=== PATIENT | male | born 1945 | race Caucasian/White ===

== ENCOUNTER 2019-08-18 10:23 | Emergency (ER) | payer MEDICARE, BC ==
[~2019-08-18] VITALS: Ht 175.3 cm; Wt 125.9 kg
[2019-08-18 10:23] VITALS: TEMP 97.9
[~2019-08-18 10:23] MED LIST: BETAPACEAF120 PO; CARDIZEM CD 30300 MG PO; COZAAR100 MG PO; ELIQUIS 2.5 PO; ELIQUIS 5MG PO; FOLIC ACID 40400 MCG PO; HYTRIN 5MG C5 MG/CAP PO; K-DUR20 MEQ PO; LASIX 40MG TABL40 MG PO; MASON NATURAL O1 SGL PO; MULTIPLE VITAMI1 CAP PO; PHARMASSURE GA500 MG PO; PRILOSEC 20MG20 MG PO; TRICOR145 MG PO; ZYLOPRIM 300MG300 MG PO
[2019-08-18] MEDS ORDERED: PACERONE200 MG PO (10:29)
[2019-08-18] MEDS ORDERED: NORVASC 10MG10 MG PO (10:31)
[2019-08-18] MEDS ORDERED: FLEXERIL 1010 MG/TAB PO (11:23)
[2019-08-18 12:23] LABS: COLLECTION METHOD CLEAN CATCH
[2019-08-18 12:29] LABS: BASO % 0.5 % (0.0-2.0); EOS # 0.1 (0.0-0.7); EOS % 1.6 % (0-4.0); GRAN # 2.5 (1.4-6.5); GRAN % 66.4 % (42.2-75.2); HEMATOCRIT 37.8 % (42.0-52.0); HEMOGLOBIN 13.1 g/dl (13.5-18.0); LYMPH # 0.8 (1.2-3.4); LYMPH % 21.9 % (20.0-51.0); MEAN CELL VOLUME 98 fl (80.0-100.0); MEAN CORPUSCULAR HEMOGLOBIN 34 pg (27.0-31.0); MEAN CORPUSCULAR HGB CONC 35 g/dl (33.0-37.0); MEAN PLATELET VOLUME 10.2 fl (7.4-10.4); MONO # 0.4 (0.1-0.6); MONO % 9.1 % (1.7-9.3); PLATELET COUNT 156 K/mm3 (130-400); RED BLOOD COUNT 3.84 M/mm3 (4.20-5.60); REDCELL DISTRIBUTION WIDTH-CV 12.9 % (11.5-14.5)
[2019-08-18 12:32] LABS: PH 6 (5-8); SQUAMOUS EPITHELIAL None Seen /hpf; URINE APPEARANCE Clear; URINE BACTERIA None Seen /hpf; URINE BILIRUBIN Negative (NEGATIVE); URINE BLOOD Negative (NEGATIVE); URINE COLOR Yellow; URINE GLUCOSE Negative (NEGATIVE); URINE KETONE Negative (NEGATIVE); URINE LEUKOCYTE ESTERASE Negative (NEGATIVE); URINE NITRATE Negative (NEGATIVE); URINE PROTEIN(semi-quant) Negative (NEGATIVE); URINE RBC 0-2 /hpf; URINE UROBILINOGEN Negative (NEGATIVE)
[2019-08-18 12:55] LABS: CREATININE, serum 1.25 (0.66-1.25); POTASSIUM 4.2 mmol/L (3.4-5.0)
[2019-08-18 13:45] VITALS: BP 125/71; PULSE 71
== END 2019-08-18 13:51 | disposition home or self-care (01) ==
LOC: COL.ER 10:23
PROVIDERS: Emergency Medicine
DX: M54.5 Low back pain (principal); I48.91 Unspecified atrial fibrillation; I10 Essential (primary) hypertension; Z79.01 Long term (current) use of anticoagulants
CPT/HCPCS: J1100; J2270; J2405

== ENCOUNTER → 2019-10-09 | Outpatient (CLI) | payer MEDICARE, BC ==
[~2019-10-09] VITALS: Ht 175.3 cm; Wt 128.3 kg
[~2019-10-09] MED LIST changes: +CORDARONE200 MG/TAB PO; +FISH OIL 1000MG1 CAP PO; +FLEXERIL 1010 MG/TAB PO; +LOTREL 10 MG-201 CAP; +NEURONTIN300 MG/CAP PO; +NORVASC 10MG10 MG PO; +ONE-A-DAY ESSE1 EACH PO; +PACERONE200 MG PO
[2019-10-09 13:02] VITALS: BP 147/64; PULSE 77
[2019-10-09 14:20] VITALS: BP 166/80; PULSE 70
== END ==
LOC: COL.RAD 12:30
DX: M48.061 Spinal stenosis, lumbar region without neurogenic claudication (principal)
CPT/HCPCS: J3301

== ENCOUNTER → 2019-11-01 | Outpatient (CLI) | payer MEDICARE, BC ==
[~2019-11-01] VITALS: Ht 175.3 cm; Wt 126.0 kg
[2019-11-01 13:04] VITALS: BP 159/77; PULSE 83
[2019-11-01 14:30] VITALS: BP 157/81; PULSE 72
== END ==
LOC: COL.RAD 12:39
DX: M54.5 Low back pain (principal)
CPT/HCPCS: J3301

== ENCOUNTER → 2019-12-13 | Outpatient (CLI) | payer MEDICARE, BC ==
[~2019-12-13] VITALS: Ht 175.3 cm; Wt 130.5 kg
[2019-12-13 12:30] VITALS: BP 160/80; PULSE 82
[2019-12-13 13:20] VITALS: BP 174/81; PULSE 81
== END ==
LOC: COL.RAD 12:18
DX: M53.3 Sacrococcygeal disorders, not elsewhere classified (principal); M54.5 Low back pain
CPT/HCPCS: J3301

== ENCOUNTER → 2020-04-11 | Outpatient (CLI) | payer MEDICARE, BC | LOC: COL.RAD 15:08 | DX: M43.17 Spondylolisthesis, lumbosacral region (principal); M51.36 Other intervertebral disc degeneration, lumbar region; M47.816 Spondylosis without myelopathy or radiculopathy, lumbar region; Z98.1 Arthrodesis status ==

== ENCOUNTER 2021-03-05 02:32 | Emergency (ER) | payer MEDICARE, BC ==
[~2021-03-05] VITALS: Ht 175.3 cm; Wt 116.4 kg
[2021-03-05 03:07] LABS: BASO % 0.4 % (0.0-2.0); EOS # 0.2 K/mm3 (0.0-0.7); EOS % 3.1 % (0.0-4.0); GRAN # 2.7 K/mm3 (1.4-6.5); GRAN % 51.7 % (42.2-75.2); HEMOGLOBIN 10.8 g/dl (13.5-18.0); LYMPH # 1.6 K/mm3 (1.2-3.4); LYMPH % 31.6 % (20.0-51.0); MEAN CELL VOLUME 96 fl (80.0-100.0); MEAN CORPUSCULAR HEMOGLOBIN 33 pg (27-31); MEAN CORPUSCULAR HGB CONC 35 g/dl (33.0-37.0); MEAN PLATELET VOLUME 9.7 fl (7.4-10.4); MONO # 0.7 K/mm3 (0.1-0.6); MONO % 12.6 % (1.7-9.3); PLATELET COUNT 169 K/mm3 (130-400); RED BLOOD COUNT 3.25 M/mm3 (4.20-5.60); REDCELL DISTRIBUTION WIDTH-CV 14.6 % (11.5-14.5)
[2021-03-05 03:08] LABS: HEMATOCRIT 31.3 % (42.0-52.0)
[2021-03-05 03:27] LABS: ALBUMIN 3.9 gm/dL (3.4-4.8); BILIRUBIN,TOTAL 0.6 mg/dL (0.2-1.2); CALCIUM 8.6 mg/dL (8.4-10.2); CREATININE, serum 1.28 mg/dL (0.72-1.25); POTASSIUM 3.6 mmol/L (3.5-4.5); TOTAL PROTEIN 6.2 gm/dL (6.2-8.1)
[2021-03-05 09:18] VITALS: TEMP 97.1
[2021-03-05 10:40] VITALS: BP 142/78; PULSE 70
== END 2021-03-05 10:40 | disposition home or self-care (01) ==
LOC: COL.ER 02:32
PROVIDERS: Personal Emergency Response Attendant
DX: S09.90XA Unspecified injury of head, initial encounter (principal); S01.01XA Laceration without foreign body of scalp, initial encounter; F10.129 Alcohol abuse with intoxication, unspecified; I10 Essential (primary) hypertension; E78.00 Pure hypercholesterolemia, unspecified; I48.91 Unspecified atrial fibrillation; Y90.6 Blood alcohol level of 120-199 mg/100 ml; Z79.01 Long term (current) use of anticoagulants; Z79.899 Other long term (current) drug therapy; W06.XXXA Fall from bed, initial encounter
CPT/HCPCS: J7040

== ENCOUNTER → 2021-03-24 | Outpatient (CLI) | payer MEDICARE, BC | LOC: COL.RAD 07:58 | DX: R16.0 Hepatomegaly, not elsewhere classified (principal); K82.4 Cholesterolosis of gallbladder; F10.21 Alcohol dependence, in remission ==

== ENCOUNTER 2021-04-18 16:00 | Inpatient (IN) | payer MEDICARE, BC ==
[~2021-04-18] VITALS: Ht 175.3 cm; Wt 113.3 kg
[2021-04-18 16:30] VITALS: BP 123/61; PULSE 66; TEMP 97.6
[2021-04-18] MEDS ORDERED: DULCOLAX STOOL100 MG PO (17:05)
[2021-04-18] MEDS ORDERED: NORCO 325 MG-7.1 TAB PO (17:06)
[2021-04-18] MEDS ORDERED: LEXAPRO 10MG10 MG PO (17:07)
[2021-04-18] MEDS ORDERED: AMBIEN 10MG10 MG PO (17:08)
[2021-04-18] MEDS ORDERED: MOBIC 7.5MG7.5 MG PO (17:09)
[2021-04-18] MEDS ORDERED: NEURONTIN300 MG/CAP PO (17:11)
[2021-04-18] MEDS ORDERED: METAMUCIL3.4 GM/DOS PO (17:23)
[2021-04-18 17:42] LABS: BASO % 0.4 % (0.0-2.0); EOS # 0.1 K/mm3 (0.0-0.7); EOS % 0.9 % (0.0-4.0); GRAN # 4.1 K/mm3 (1.4-6.5); GRAN % 73.3 % (42.2-75.2); HEMOGLOBIN 10.9 g/dl (13.5-18.0); LYMPH # 0.7 K/mm3 (1.2-3.4); LYMPH % 13.2 % (20.0-51.0); MEAN CELL VOLUME 93 fl (80.0-100.0); MEAN CORPUSCULAR HEMOGLOBIN 32 pg (27-31); MEAN CORPUSCULAR HGB CONC 35 g/dl (33.0-37.0); MEAN PLATELET VOLUME 9.9 fl (7.4-10.4); MONO # 0.7 K/mm3 (0.1-0.6); MONO % 11.7 % (1.7-9.3); PLATELET COUNT 169 K/mm3 (130-400); RED BLOOD COUNT 3.36 M/mm3 (4.20-5.60); REDCELL DISTRIBUTION WIDTH-CV 13.3 % (11.5-14.5)
[2021-04-18 17:44] LABS: HEMATOCRIT 31.3 % (42.0-52.0)
[2021-04-18 17:48] LABS: INR 1.8 (0.8-3.0); PROTHROMBIN TIME 19.8 SECONDS (9.7-12.8)
[2021-04-18 17:51] LABS: PARTIAL THROMBOPLASTIN TIME 33.8 SECONDS (26.0-37.0)
--- NOTE | 2021-04-18 18:05 | NUR ---
Patient arrived to the floor as a direct admit. IV started in the left hand by this RN; NS is running at 125mL/hr. All admission assessments completed. Patient has no complaints/concerns at this time. - Carolin, is at the bedside.
[2021-04-18 18:08] LABS: ALBUMIN 3.9 gm/dL (3.4-4.8); BILIRUBIN,TOTAL 0.7 mg/dL (0.2-1.2); CALCIUM 8.4 mg/dL (8.4-10.2); CREATININE, serum 1.63 mg/dL (0.72-1.25); MAGNESIUM 1.9 mg/dL (1.6-2.6); TOTAL PROTEIN 6.3 gm/dL (6.2-8.1)
--- NOTE | 2021-04-18 19:00 | NUR ---
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 Assessment complete. A&Ox4. Denies pain/nausea/shortness of breath. VS remain stable. NS@125ml/hr to left hand IV. Tele reporting SR. Noted to have bilat upper/lower ext abrasions. Abrasion to top of head. Plan of care discussed for this shift to include meds/calling for questions/concerns. Verbalizes understanding. Call light in reach/bed alarm on. Will monitor.
[2021-04-18 19:12] VITALS: BP 139/55; PULSE 74; TEMP 98.1
[2021-04-18 21:59] VITALS: BP 143/59; PULSE 68; TEMP 98.3
[2021-04-19] VITALS (9 sets, daily range): BP systolic 138–180; BP diastolic 60–72; PULSE 52–69; TEMP 97.4–98.9
--- NOTE | 2021-04-19 02:19 | NUR ---
Resting eyes closed. NO s/s of pain noted. Scoring 1-2 on detox protocol. Will continue to monitor.
[2021-04-19 04:41] LABS: COLLECTION METHOD CLEAN CATCH
[2021-04-19 05:01] LABS: PH 6 (5-8); SQUAMOUS EPITHELIAL None Seen /hpf (0-10); URINE APPEARANCE Clear (CLEAR/HAZY); URINE BACTERIA None Seen /hpf (NONE SEEN); URINE BILIRUBIN Negative (NEGATIVE); URINE BLOOD 1+ (NEGATIVE); URINE COLOR Yellow (YELLOW); URINE GLUCOSE Negative (NEGATIVE); URINE KETONE Negative (NEGATIVE); URINE LEUKOCYTE ESTERASE Negative (NEGATIVE); URINE NITRATE Negative (NEGATIVE); URINE PROTEIN(semi-quant) Negative (NEGATIVE); URINE UROBILINOGEN Negative (NEGATIVE); URINE WBC 0-2 /hpf (0-2)
--- NOTE | 2021-04-19 06:00 | NUR ---
Rested well this shift. Denied pain/nausea/shortness of breath, VS remained stable. A&Ox4. Scoring 1-2 on detox protocol due to blood pressures in low 140s/60s. Denies current questions/concerns. Call light in reach. Will monitor.
[2021-04-19 07:29] LABS: BASO % 0.2 % (0.0-2.0); EOS % 0.8 % (0.0-4.0); GRAN # 3.5 K/mm3 (1.4-6.5); GRAN % 67.9 % (42.2-75.2); HEMOGLOBIN 10.3 g/dl (13.5-18.0); LYMPH % 19.5 % (20.0-51.0); MEAN CELL VOLUME 94 fl (80.0-100.0); MEAN CORPUSCULAR HEMOGLOBIN 33 pg (27-31); MEAN CORPUSCULAR HGB CONC 35 g/dl (33.0-37.0); MEAN PLATELET VOLUME 10.3 fl (7.4-10.4); MONO # 0.6 K/mm3 (0.1-0.6); MONO % 11.4 % (1.7-9.3); PLATELET COUNT 160 K/mm3 (130-400); RED BLOOD COUNT 3.16 M/mm3 (4.20-5.60); REDCELL DISTRIBUTION WIDTH-CV 13.2 % (11.5-14.5)
[2021-04-19 07:37] LABS: HEMATOCRIT 29.8 % (42.0-52.0)
[2021-04-19 07:41] LABS: CALCIUM 7.6 mg/dL (8.4-10.2); CREATININE, serum 1.24 mg/dL (0.72-1.25); MAGNESIUM 1.9 mg/dL (1.6-2.6); POTASSIUM 3.6 mmol/L (3.5-4.5)
--- NOTE | 2021-04-19 10:27 | NUR ---
Patient is doing well this morning. Denies any complaints or concerns. This RN assisted the patient w/ standing at the bedside to use the urinal. Patient is weak and mildly unsteady. Patient has not displayed any signs of detoxing.
--- NOTE | 2021-04-19 13:59 | NUR ---
NOELLE completed intake with patient. Patient states that he lives in [facility] with his Carolin [phone]. Patient states that he utilizes a walker as well as a cane. Patient states that he does not have anyone to come in to assist with services such as a HH agency. Patient provides that he is independent with ADL's. Patient states that his PCP is Dr. Estrada and pharmacy is [facility]. Patient states that his DPOA-HC is his spouse. DC plan is to return to his home and he does not have any concern with doing so. SW will continue to follow. DC plan: home
--- NOTE | 2021-04-19 17:41 | NUR ---
Patient has done well today and has not expressed any complaints or concerns. Worked w/ PT and did well. is currently at the bedside.
--- NOTE | 2021-04-19 19:30 | NUR ---
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 A&Ox4. Denies nausea/shortness of breath/lightheadedness/pain. VS stable. Scoring 1-2 on detox protocol. TELE reporting SB. INT to left hand flushes without difficulty. Noted to have bilat upper/lower extremity abrasions. Abrasion to head from previous fall. Plan of care discussed for this shift to include meds/calling for questions/concerns. Verbalizes understanding/denies needs. Call light in reach/bed alarm on. Will monitor.
--- NOTE | 2021-04-20 03:38 | NUR ---
Up to bathroom at this time-one assist with walker/gait belt. Did get a little winded with acctivity but tolerated well.
[2021-04-20 03:59] VITALS: BP 155/70; PULSE 57; TEMP 97.8
--- NOTE | 2021-04-20 04:57 | NUR ---
Rested well this shift. Denied nausea/shortness of breath. Received tylenol x1 for left ankle pain. Scoring 1-2 on CIWA protocol. INT to left hand flushes well. Voiding well. Was up out of bed to the bathroom all shift with one assist and walker. Denies current needs. Call light in reach. Will monitor.
[2021-04-20 07:59] VITALS: BP 150/68; PULSE 59; TEMP 98.1
--- NOTE | 2021-04-20 09:29 | NUR ---
PT PLEASANT, AOX4, DENIES PAIN, HAS CPAP ON, ASSESSMENT PERFORMED, MEDICATIONS GIVEN, PT REPORTS WANTING TO GO BACK TO SLEEP SO CPAP KEPT ON, IV FLUSHED, NO REDNESS SWELLING OR EDEMA. NO OTHER NEEDS
[2021-04-20 11:30] VITALS: BP 145/61; PULSE 57; TEMP 98
--- NOTE | 2021-04-20 13:47 | NUR ---
NOELLE met with patient and patient's Carolin to discuss going home with . Both are in agreement to this plan and would like to go with [facility]. Patient has had multiple falls due to his alcohol intake. Patient asks for information on treatment for alcohol. Alcohol resource provided. Request made to hospitalist for nursing to be added onto the orders due to patient's blood pressure and medication management. Clinical referral faxed to [facility]- Discharge plan: Home with [facility]
[2021-04-20] MEDS ORDERED: THIAMINE 1100 MG/TAB PO (14:20)
[2021-04-20] MEDS ORDERED: FOLIC ACID 11 MG/TA1 PO (14:20)
--- NOTE | 2021-04-20 15:13 | NUR ---
DISCHARGE EDUCATION PROVIDED, INT REMOVED, NO QUESTIONS AT THIS TIME, TELE REMOVED, PT ESCORTED OUT VIA WHEELCHAIR, NO OTHER NEEDS
--- NOTE | 2021-04-21 10:25 | NUR ---
Continuity Editor was contacted by Carla at [facility] who advised part of the referral did not go through. SW faxed referral and discharge orders.
== END 2021-04-20 15:15 | disposition home health service (06) | DRG 897 ==
LOC: MEDICAL 16:00
PROVIDERS: ADMIT Internal Medicine
DX: F10.10 Alcohol abuse, uncomplicated (principal); G72.81 Critical illness myopathy; I10 Essential (primary) hypertension; I48.91 Unspecified atrial fibrillation; N40.0 Benign prostatic hyperplasia without lower urinary tract symptoms; G47.00 Insomnia, unspecified; G47.33 Obstructive sleep apnea (adult) (pediatric); S00.03XA Contusion of scalp, initial encounter; S93.402A Sprain of unspecified ligament of left ankle, initial encounter; Z96.653 Presence of artificial knee joint, bilateral; W19.XXXA Unspecified fall, initial encounter; Y93.9 Activity, unspecified; Y92.9 Unspecified place or not applicable; Z23 Encounter for immunization
CPT/HCPCS: 99222-AI; 99231-AI; 99239; J7030

== ENCOUNTER 2021-10-31 14:28 | Emergency (ER) | payer MEDICARE, BC ==
[~2021-10-31] VITALS: Ht 175.3 cm; Wt 118.2 kg
[~2021-10-31 14:28] MED LIST changes: +AMBIEN 10MG10 MG PO; +DULCOLAX STOOL100 MG PO; +FOLIC ACID 11 MG/TA1 PO; +LEXAPRO 10MG10 MG PO; +METAMUCIL3.4 GM/DOS PO; +MOBIC 7.5MG7.5 MG PO; +NORCO 325 MG-7.1 TAB PO; +THIAMINE 1100 MG/TAB PO
[2021-10-31 14:32] VITALS: TEMP 97
[2021-10-31] MEDS ORDERED: ROXICODONE 55 MG/TAB PO (16:05)
[2021-10-31 16:28] VITALS: BP 137/78; PULSE 60
== END 2021-10-31 16:28 | disposition home or self-care (01) ==
LOC: COL.ER 14:28
DX: S83.92XA Sprain of unspecified site of left knee, initial encounter (principal); Z96.652 Presence of left artificial knee joint; X58.XXXA Exposure to other specified factors, initial encounter

== ENCOUNTER 2023-03-16 12:01 | Emergency (ER) | payer MEDICARE, BC ==
[~2023-03-16] VITALS: Ht 172.7 cm; Wt 113.6 kg
[~2023-03-16 12:01] MED LIST changes: +ALDACTONE 25MG25 M1 PO; +BUPRENORPHINE HY2 MG SL; +FLEXERIL5 MG PO; +OMEGA-3 1000 MG1 CAP PO; +PHENERGAN 25 TA25 MG PO; +ROXICODONE 55 MG/TAB PO
[2023-03-16 12:08] VITALS: TEMP 97.9
[2023-03-16 12:40] LABS: BASO % 0.1 % (0.0-2.0); EOS % 0.1 % (0.0-4.0); GRAN # 6.5 K/mm3 (1.4-6.5); GRAN % 82.2 % (42.2-75.2); LYMPH # 0.5 K/mm3 (1.2-3.4); LYMPH % 6.7 % (20.0-51.0); MEAN CELL VOLUME 96 fl (80.0-100.0); MEAN CORPUSCULAR HEMOGLOBIN 34 pg (27-31); MEAN CORPUSCULAR HGB CONC 35 g/dl (33.0-37.0); MEAN PLATELET VOLUME 10.4 fl (7.4-10.4); MONO # 0.8 K/mm3 (0.1-0.6); MONO % 10.4 % (1.7-9.3); PLATELET COUNT 125 K/mm3 (130-400); RED BLOOD COUNT 2.98 M/mm3 (4.20-5.60); REDCELL DISTRIBUTION WIDTH-CV 14.5 % (11.5-14.5)
[2023-03-16 12:41] LABS: HEMATOCRIT 28.5 % (42.0-52.0)
[2023-03-16 13:01] LABS: ALBUMIN 3.5 gm/dL (3.4-4.8); BILIRUBIN,TOTAL 1.3 mg/dL (0.2-1.2); CREATININE, serum 1.46 mg/dL (0.72-1.25); POTASSIUM 4.1 mmol/L (3.5-4.5); TOTAL PROTEIN 6.4 gm/dL (6.2-8.1)
[2023-03-16] MEDS ORDERED: Iohexol 300 - 100 ML VIAL IV ONE (13:54)
[2023-03-16] MEDS ORDERED: NS 100 ML IV SCH (13:55)
[2023-03-16] MEDS ORDERED: NIZORAL CR 30GM TOP (14:31)
[2023-03-16 14:57] VITALS: BP 148/87; PULSE 62
== END 2023-03-16 15:05 | disposition home or self-care (01) ==
LOC: COL.ER 12:01
PROVIDERS: Family Medicine
DX: K59.00 Constipation, unspecified (principal); B35.6 Tinea cruris; K74.60 Unspecified cirrhosis of liver; I48.91 Unspecified atrial fibrillation; Z79.01 Long term (current) use of anticoagulants
CPT/HCPCS: Q9967

== ENCOUNTER 2023-03-18 11:08 | Emergency (ER) | payer MEDICARE, BC ==
[~2023-03-18] VITALS: Ht 175.3 cm; Wt 113.6 kg
[~2023-03-18 11:08] MED LIST changes: +NIZORAL CR 30GM TOP
[2023-03-18 11:47] LABS: BASO % 0.2 % (0.0-2.0); EOS # 0.1 K/mm3 (0.0-0.7); EOS % 0.9 % (0.0-4.0); GRAN # 4.1 K/mm3 (1.4-6.5); GRAN % 73.3 % (42.2-75.2); LYMPH # 0.8 K/mm3 (1.2-3.4); LYMPH % 14.1 % (20.0-51.0); MEAN CELL VOLUME 100 fl (80.0-100.0); MEAN CORPUSCULAR HGB CONC 33 g/dl (33.0-37.0); MEAN PLATELET VOLUME 10.2 fl (7.4-10.4); MONO # 0.6 K/mm3 (0.1-0.6); MONO % 10.8 % (1.7-9.3); PLATELET COUNT 145 K/mm3 (130-400); RED BLOOD COUNT 2.68 M/mm3 (4.20-5.60); REDCELL DISTRIBUTION WIDTH-CV 14.5 % (11.5-14.5)
[2023-03-18 11:53] LABS: HEMATOCRIT 26.7 % (42.0-52.0); HEMOGLOBIN 8.9 g/dl (13.5-18.0); MEAN CORPUSCULAR HEMOGLOBIN 33 pg (27-31)
[2023-03-18 12:01] LABS: ALBUMIN 3.3 gm/dL (3.4-4.8); BILIRUBIN,TOTAL 0.8 mg/dL (0.2-1.2); CALCIUM 8.6 mg/dL (8.4-10.2); CREATININE, serum 1.85 mg/dL (0.72-1.25); POTASSIUM 3.9 mmol/L (3.5-4.5)
[2023-03-18 12:02] LABS: INR 1.3 (0.8-3.0); PROTHROMBIN TIME 14.6 SECONDS (9.7-12.8)
[2023-03-18 12:23] VITALS: BP 133/61; PULSE 58; TEMP 98.6
== END 2023-03-18 12:23 | disposition home or self-care (01) ==
LOC: COL.ER 11:08
PROVIDERS: Physician Assistant
DX: S09.90XA Unspecified injury of head, initial encounter (principal); S00.03XA Contusion of scalp, initial encounter; D64.9 Anemia, unspecified; M54.2 Cervicalgia; M25.522 Pain in left elbow; I48.91 Unspecified atrial fibrillation; R79.89 Other specified abnormal findings of blood chemistry; Z79.01 Long term (current) use of anticoagulants; W01.10XA Fall on same level from slipping, tripping and stumbling with subsequent striking against unspecified object, initial encounter; Y92.59 Other trade areas as the place of occurrence of the external cause

== ENCOUNTER → 2023-03-23 | Outpatient (CLI) | payer MEDICARE, BC | LOC: COL.VAS 08:20 | DX: I35.1 Nonrheumatic aortic (valve) insufficiency (principal); I11.9 Hypertensive heart disease without heart failure ==